=== PATIENT | male | born 1950 | race Caucasian/White ===

== ENCOUNTER 2016-06-22 09:27 | Emergency (ER) | payer MEDICARE ==
--- NOTE | 2016-07-04 08:25 | ER ---
ADMIT: 06/22/2016 RM/LOC: ER [facility] MR#: [id number] [id number] [id number] RUBEN SHAH [address] [place] [id number] Emergency Room Report SEX: M AGE: 65 : 1950 DATE: 06/22/2016 This patient was sent here from the [place] because he received an EpiPen injection while there. 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 When he got to [place], he is having difficulty talking because of the swollen tongue and the swollen throat. He states that he has been stung by a bee 1000s and 1000s of times, this has never happened to him before. In the emergency room, there was no swelling noted in his face, he had a slight amount of swelling on the posterior pharynx. He was given Decadron and Benadryl IV in the ER. When I went to evaluate him, he was fine, I never noticed any swelling in his face or tongue or mouth. I did write a prescription for an EpiPen, he was put on Decadron for 5 days, and he can take Benadryl [id number]. He is to follow up with the [place], possibly an engineered wood designer to determine if these are making him allergic. Please see my T-sheet. BASILIO Scott / Elio Downing MD / andrew JOB #: [id number] CC: Elio Downing MD, Attending Physician Shahana Olvera NP, Family Physician
== END 2016-06-22 11:33 | disposition home or self-care (01) ==
LOC: ER 09:27
DX: T63.441A Toxic effect of venom of bees, accidental (unintentional), initial encounter (principal); I10 Essential (primary) hypertension; Z95.1 Presence of aortocoronary bypass graft; Z79.899 Other long term (current) drug therapy; Y92.9 Unspecified place or not applicable